=== PATIENT | female | born 1985 | race Two or more races ===

== ENCOUNTER 2016-10-07 23:55 | Emergency (ER) | payer SELFPAY ==
[~2016-10-07] VITALS: Ht 152.4 cm; Wt 63.5 kg
--- NOTE | 2016-10-08 00:15 | NUR ---
PT BIBSELF, AMBULATORY TO ER BED 5 PT C/O "UPPER ABD PAIN SINCE THURSDAY; NAUSEA NO VOMITING" PT AOX4 PANAMANIAN SPEAKING. PT AOX4 RR EVEN AND UNLABORED. NO NVD AT THIS TIME. PT NOT DIAPHORETIC. PT GOWNED AND PLACED ON MONITOR WAITING FOR MD PRESLEY
--- NOTE | 2016-10-08 00:16 | NUR ---
DR. WOOD AT BEDSIDE FOR EVAL.
[2016-10-08] MEDS ORDERED: METOCLOPRAMIDE HCL 10 MG/2 ML VIAL ONE (00:26)
--- NOTE | 2016-10-08 00:26 | NUR ---
IV STARTED ON RIGHT AC 18, LABS DRAWN
[2016-10-08] MEDS ORDERED: IV SET PRIMARY PUMP SET 1 EA INFUS.SET MC ONE (00:27)
[2016-10-08] MEDS ORDERED: IV NS 0.9% 1,000 ML ONE (00:27)
[2016-10-08] MEDS ORDERED: FAMOTIDINE/PF INJ 20 MG/2 ML VIAL IV ONE ×2 (00:27→00:30)
[2016-10-08] MEDS ORDERED: METOCLOPRAMIDE HCL 10 MG/2 ML VIAL IV ONE (00:30)
[2016-10-08] MEDS ORDERED: IV NS 0.9% 1,000 ML BAG IV ONE (00:30)
[2016-10-08 00:49] LABS: BASOPHILS % (AUTO) 0.3 % (0.0-2.0); EOSINOPHILS # (AUTO) 0.4 /CMM (0.0-0.7); HEMATOCRIT 40 % (33-45); HEMOGLOBIN 13.4 g/dL (11.5-14.8); LYMPHOCYTES # (AUTO) 2.1 /CMM (0.8-4.8); LYMPHOCYTES % (AUTO) 20.6 % (20.0-44.0); MEAN CORPUSCULAR HEMOGLOBIN 31 PG (26.0-33.0); MEAN CORPUSCULAR HGB CONC 34 g/dl (31.0-36.0); MEAN CORPUSCULAR VOLUME 91 fL (82-100); MONOCYTES # (AUTO) 0.6 /CMM (0.1-1.30); MONOCYTES % (AUTO) 5.6 % (2.0-12.0); NEUTROPHILS # (AUTO) 7.2 /CMM (1.8-8.9); NEUTROPHILS % (AUTO) 69.5 % (43.0-81.0); PLATELET COUNT (AUTO) 275 /CMM (150-450); RDW COEFFICIENT OF VARIATION 12.9 (11.5-15.0); RED BLOOD CELL COUNT(AUTO) 4.37 MIL/uL (4.0-5.2); WHITE BLOOD COUNT (AUTO) 10.4 K/uL (4.3-11.0)
[2016-10-08] MEDS ORDERED: HYDROMORPHONE 1 MG/1 ML DISP.SYRIN ONE (00:50)
[2016-10-08] MEDS ORDERED: HYDROMORPHONE INJ 2 MG/ML DISP.SYRIN IV ONE (01:00)
[2016-10-08 01:06] LABS: CALCIUM, SERUM 8.4 mg/dL (8.5-10.1); CREATININE 0.6 mg/dL (0.6-1.3); POTASSIUM 3.6 mmol/L (3.5-5.1)
[2016-10-08 01:10] LABS: INR 0.97 (0.87-1.13); PROTHROMBIN TIME 10.4 SECS (9.5-12.7)
[2016-10-08 01:11] LABS: ALBUMIN 3.9 g/dL (3.4-5.0); BILIRUBIN,DIRECT 0.1 mg/dL (0.0-0.2); BILIRUBIN,TOTAL 0.5 mg/dL (0.2-1.0); TOTAL PROTEIN, SERUM 7.3 g/dL (6.4-8.2)
--- NOTE | 2016-10-08 01:51 | NUR ---
ULTRASOUND AT BEDSIDE
[2016-10-08] MEDS ORDERED: MAG HYDROX/AL HYDROX/SIMETH 30 ML UDC ONE (02:15)
[2016-10-08] MEDS ORDERED: LIDOCAINE VISCOUS 2% UD 15 ML UDC ONE (02:15)
[2016-10-08] MEDS ORDERED: LIDOCAINE VISCOUS 2% UD 15 ML UDC MM ONE (02:30)
[2016-10-08] MEDS ORDERED: MAG HYDROX/AL HYDROX/SIMETH 30 ML UDC PO ONE (02:30)
--- NOTE | 2016-10-08 02:36 | NUR ---
PT STATES "I FEEL BETTER AFTER TAKING MEDICATION."
--- NOTE | 2016-10-08 03:23 | NUR ---
IV removed. Catheter intact and site benign. Pressure and 4x4 applied to site. No bleeding noted. Patient discharged to home in stable condition. Written and verbal after care instructions given. Patient verbalizes understanding of instruction. ambulatory with a steady gait
[2016-10-08 03:24] VITALS: BP 99/62
== END 2016-10-08 03:25 | disposition home or self-care (01) ==
LOC: ER 23:55
DX: K21.9 Gastro-esophageal reflux disease without esophagitis (principal)
CPT/HCPCS: 36415; 76705; 80048; 80076; 83690; 84703; 85025; 85730; 96361; 96374; 96375; 99285; A4606 ×2; J1170; J2765; J3490; J7030; Z7610 ×2

== ENCOUNTER 2018-05-25 15:43 | Emergency (ER) | payer SELFPAY ==
[~2018-05-25] VITALS: Ht 162.6 cm; Wt 65.3 kg
[2018-05-25 16:00] VITALS: BP 118/78
[2018-05-25] MEDS ORDERED: KETOROLAC TROMETHAMINE INJ 60 MG/2 ML VIAL IM ONE (16:30)
[2018-05-25] MEDS ORDERED: KETOROLAC TROMETHAMINE INJ 30 MG/ML VIAL ONE ×2 (16:42→16:43)
[2018-05-25 16:52] LABS: APPEARANCE,URINE Clear (CLEAR); BILIRUBIN,URINE Negative (NEGATIVE); BLOOD, URINE Negative Ery/uL (NEGATIVE); COLOR,URINE Yellow (YELLOW); KETONES,URINE Negative (NEGATIVE); LEUKOCYTE ESTERASE ,URINE Negative (NEGATIVE); NITRITE, URINE Negative (NEGATIVE); PROTEIN,URINE Negative (NEGATIVE); UGLUCOSE Negative (NEGATIVE); UROBILINOGEN,URINE 0.2 EU/dL (0.2)
--- NOTE | 2018-05-25 19:06 | NUR ---
For discharge ACI reiterated with Echocardiography Technologist Monica. pt states "feel better-able to move pain is less". Home ambulatory in NAD - stable
== END 2018-05-25 19:08 | disposition home or self-care (01) ==
LOC: ER 15:46
DX: M53.3 Sacrococcygeal disorders, not elsewhere classified (principal); Z98.890 Other specified postprocedural states
CPT/HCPCS: 72220; 81001; 84703; 96372; 99284; J1885 ×2; Z7610; 81000-TC